=== PATIENT | female | born 1995 | race Caucasian/White ===

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

== ENCOUNTER 2017-02-20 15:03 | Emergency (ER) | payer MEDICAID, OTHER ==
[~2017-02-20] VITALS: Ht 160 cm; Wt 53.0 kg
[~2017-02-20 15:03] MED LIST: FLUO-1 PO
[2017-02-20 15:08] VITALS: BP 110/58; PULSE 108; RESP 16; TEMP 99.7; O2SAT 99
[2017-02-20] MEDS ORDERED: CEPH-459 PO (15:18)
[2017-02-20] MEDS ORDERED: KETOROLAC TROMETHAMINE 30 MG/ML (IVP) VIAL IV PUSH ONE (15:30)
[2017-02-20] MEDS ORDERED: ONDANSETRON HCL 4 MG/2 ML VIAL IV PUSH ONE (15:30)
[2017-02-20] MEDS ORDERED: SODIUM CHLOR 0.9% 1000 ML INJ 1,000 ML IV ONE (15:30)
--- NOTE | 2017-02-20 15:38 | PD ---
HPI Chief Complaint: Dizziness Time Seen by Provider: 15:18 Travel History International Travel<30 days: No Contact w/Intl Traveler<30days: No Traveled to known affect area: No History of Present Illness HPI This is a 21-year-old female who presents to the emergency department with fever , nausea and sore throat for 1 week, constant, moderate severity associated with rhinorrhea and multiple episodes of vomiting. She has a history of recurrent tonsillitis. She was seen by her doctor 2 days ago who did a rapid strep test which was negative and she was started on Keflex. She says her fevers been up to 103. She feels generally weak and feels like she is going to pass out. She denies any abdominal pain. PFSH Past Medical History Asthma: Yes (UNTIL APPROX. 10YEARS OLD) Depression: Yes Cancer: No Cardiovascular Problems: No Diminished Hearing: No Endocrine: No Genitourinary: No Immune Disorder: No Musculoskeletal: No Neurologic: No Reproductive: No Respiratory: No Immunizations Current: Yes (UTD) ?: Not Past Surgical History Other Surgery: No Social History Alcohol Use: No Tobacco Use: No Substance Use: Yes Allergies-Medications (Allergen,Severity, Reaction): Coded Allergies: No Known Allergies (Verified Adverse Reaction, Unknown, 02/20/17) Reported Meds & Prescriptions Reported Meds & Active Scripts Active Reported Keflex (Cephalexin) 250 Mg Cap Unknown Dose PO Q6H Review of Systems Except as stated in HPI: all other systems reviewed are Neg Physical Exam Narrative GENERAL:Well appearing, no acute distress SKIN: Focused skin assessment warm and dry. HEAD: Atraumatic. Normocephalic. EYES: Pupils equal and round. No injection or drainage. ENT: Dry mucous membranes. Posterior pharyngeal erythema with tonsillar edema and exudates. No asymmetry or uvular deviation. NECK: Trachea midline. Tender anterior cervical lymphadenopathy. CARDIOVASCULAR: Regular rate and rhythm. No murmur appreciated. RESPIRATORY: Clear to auscultation. Breath sounds equal bilaterally. GASTROINTESTINAL: Abdomen soft, non-tender, nondistended. MUSCULOSKELETAL: No obvious deformities. NEUROLOGICAL: Awake and alert. No obvious cranial nerve deficits. Moving all extremities. PSYCHIATRIC: Appropriate mood and affect; insight and judgment normal. Data Data Last Documented VS Vital Signs Date Time Temp Pulse Resp B/P (MAP) Pulse Ox O2 Delivery O2 Flow Rate FiO2 02/20/17 15:08 99.7 108 16 110/58 (75) 99 Orders Orders Group A Rapid Strep Screen (02/20/17 15:26) Monoscreen (02/20/17 15:26) ^ Insert Iv (02/20/17 15:) Complete Blood Count With Diff (02/20/17 15:26) Comprehensive Metabolic Panel (02/20/17 15:26) Ketorolac Inj (Toradol Inj) (02/20/17 15:30) Ondansetron Inj (Zofran Inj) (02/20/17 15:30) Sodium Chlor 0.9% 1000 Ml Inj (Ns 1000 M (02/20/17 15:30) Urinalysis - C+S If Indicated (02/20/17 15:) Strep Culture (Group A) (02/20/17 15:35) Labs Laboratory Tests Test 02/20/17 15:35 02/20/17 16:35 White Blood Count 13.6 TH/MM3 Red Blood Count 4.35 MIL/MM3 Hemoglobin 12.5 GM/DL Hematocrit 38.5 % Mean Corpuscular Volume 88.5 FL Mean Corpuscular Hemoglobin 28.8 PG Mean Corpuscular Hemoglobin Concent 32.6 % Red Cell Distribution Width 12.7 % Platelet Count 247 TH/MM3 Mean Platelet Volume 8.5 FL Neutrophils (%) (Auto) 87.6 % Lymphocytes (%) (Auto) 3.9 % Monocytes (%) (Auto) 8.2 % Eosinophils (%) (Auto) 0.0 % Basophils (%) (Auto) 0.3 % Neutrophils # (Auto) 12.0 TH/MM3 Lymphocytes # (Auto) 0.5 TH/MM3 Monocytes # (Auto) 1.1 TH/MM3 Eosinophils # (Auto) 0.0 TH/MM3 Basophils # (Auto) 0.0 TH/MM3 CBC Comment DIFF FINAL Differential Comment Blood Urea Nitrogen 7 MG/DL Creatinine 0.66 MG/DL Random Glucose 117 MG/DL Total Protein 8.5 GM/DL Albumin 3.5 GM/DL Calcium Level 8.4 MG/DL Alkaline Phosphatase 66 U/L Aspartate Amino Transf (AST/SGOT) 18 U/L Alanine Aminotransferase (ALT/SGPT) 24 U/L Total Bilirubin 0.7 MG/DL Sodium Level 131 MEQ/L Potassium Level 3.2 MEQ/L Chloride Level 97 MEQ/L Carbon Dioxide Level 24.1 MEQ/L Anion Gap 10 MEQ/L Estimat Glomerular Filtration Rate 115 ML/MIN Urine Collection Type CLEAN CATCH Urine Color YELLOW Urine Turbidity CLEAR Urine pH 6.0 Urine Specific [place] 1.027 Urine Protein TRACE mg/dL Urine Glucose (UA) NEG mg/dL Urine Ketones TRACE mg/dL Urine Occult Blood MOD Urine Nitrite NEG Urine Bilirubin NEG Urine Leukocyte Esterase NEG Urine RBC 15-19 /hpf Urine WBC 0-2 /hpf Urine Squamous Epithelial Cells 0-5 /hpf Microscopic Urinalysis Comment CULT NOT INDICATED Urine Collection Time 16:35 [facility] Medical Decision Making Medical Screen Exam Complete: Yes Emergency Medical Condition: Yes Interpretation(s) temperature 99.7 tachycardic Mild leukocytosis 87% neutrophils Mild hyponatremia Mild hypokalemia Urinalysis: Some blood but no infection [place] is negative Differential Diagnosis Strep pharyngitis, viral pharyngitis, mononucleosis, dehydration, urinary tract infection Narrative Course This is a 21-year-old female who presents to the emergency department with sore throat, fatigue, fever and vomiting. She appears dehydrated on exam. She is placed on a monitor and an IV was established. She has exudative tonsillitis on physical exam. Labs demonstrate a mild leukocytosis are otherwise reassuring. She feels much much better after a liter of IV fluid, Toradol and Zofran. She says she wants to go leaving get dinner. I think she is safe for discharge. I suspect she has viral pharyngitis. Diagnosis Primary Impression: Exudative tonsillitis Patient Instructions: General Instructions Additional Instructions: If you develop severe chest pain, shortness of breath, sweating, lightheadedness , dizziness or difficulty breathing return to the emergency department immediately. Followup with your primary care physician in 2-3 days if your symptoms are not resolved. Med/Other Pt SpecificInfo: Prescription(s) given Scripts Ondansetron Odt (Zofran Odt) 4 Mg Tab 4 MG SL Q6HR Y for Nausea/Vomiting, #15 TAB 0 Refills Prov: Stella Mccormack MD 02/20/17 Naproxen (Naproxen) 375 Mg Tab 375 MG PO BID Y for PAIN SCALE 4 TO 10, #20 TAB 0 Refills Prov: Stella Mccormack MD 02/20/17 Disposition: 01 DISCHARGE HOME Condition: Stable Stella Mccormack MD Feb 20, 2017 15:38
[2017-02-20 15:47] LABS: BASOPHIL % 0.3 % (0.0-2.0); HEMATOCRIT 38.5 % (35.0-46.0); LYMPH % 3.9 % (9.0-44.0); LYMPHOCYTE # 0.5 TH/MM3 (1.0-4.8); MEAN CELL VOLUME 88.5 FL (80.0-100.0); MEAN CORPUSCULAR HEMOGLOBIN 28.8 PG (27.0-34.0); MEAN CORPUSCULAR HGB CONC 32.6 % (32.0-36.0); MONO % 8.2 % (0.0-8.0); NEUT % 87.6 % (16.0-70.0); PLATELET COUNT 247 TH/MM3 (150-450); RED BLOOD COUNT 4.35 MIL/MM3 (4.00-5.30); RED CELL DISTRIBUTION WIDTH 12.7 % (11.6-17.2); WHITE BLOOD COUNT 13.6 TH/MM3 (4.0-11.0)
[2017-02-20 15:48] LABS: HEMO FLAGS DIFF FINAL
[2017-02-20 15:57] LABS: CHLORIDE 97 MEQ/L (98-107); POTASSIUM 3.2 MEQ/L (3.5-5.1); SODIUM (NA) 131 MEQ/L (136-145)
[2017-02-20 16:01] LABS: ANION GAP 10 MEQ/L (5-15); BICARBONATE 24.1 MEQ/L (21.0-32.0); BLOOD UREA NITROGEN 7 MG/DL (7-18)
[2017-02-20 16:04] LABS: ALT (GPT) 24 U/L (9-42); AST (GOT) 18 U/L (16-38)
[2017-02-20 16:05] LABS: GLOMERULAR FILTRATION RATE 115 ML/MIN (>89)
[2017-02-20 16:06] LABS: TOTAL BILIRUBIN ADULT 0.7 MG/DL (0.2-1.0)
[2017-02-20 16:07] LABS: ALKALINE PHOSPHATASE 66 U/L (45-117)
[2017-02-20 16:47] LABS: BLOOD, URINE MOD (NEG); GLUCOSE,URINE NEG (NEG); KETONE, URINE TRACE mg/dL (NEG); NITRITE,URINE NEG (NEG)
[2017-02-20 16:52] LABS: METHOD OF COLLECTION CLEAN CATCH; URINE COLOR YELLOW (YELLW/STRAW)
[2017-02-20 16:53] LABS: COMMENT (UR) CULT NOT INDICATED; CULTURE IF INDICATED CULT NOT INDICATED; RBC, URINE 15-19 /hpf (0-3); SQUAMOUS EPITHELIAL CELL URINE 0-5 /hpf (0-5); WBC, URINE 0-2 /hpf (0-5)
[2017-02-20] MEDS ORDERED: NAPR-855 PO (17:30)
[2017-02-20] MEDS ORDERED: ZOFR4TAB3 SL (17:30)
== END 2017-02-20 17:53 | disposition home or self-care (01) ==
LOC: PHED 15:03
DX: J03.00 Acute streptococcal tonsillitis, unspecified (principal)
CPT/HCPCS: 80053; 81001; 85025; 86308; 87081; 87880; 96361; 96374; 96375; 99284; J1885; J2405; J7030